=== PATIENT | female | born 1935 | race Asian ===

== ENCOUNTER 2018-07-17 12:20 | Emergency (ER) | payer OTHER ==
[~2018-07-17] VITALS: Ht 147.3 cm; Wt 42.6 kg
[2018-07-17 12:31] VITALS: BP_SYST 139
[2018-07-17] MEDS ORDERED: KETOROLAC TROMETHAMINE 30 MG VIAL IM ONE (13:45)
[2018-07-17 14:31] VITALS: BP_SYST 139
== END 2018-07-17 14:31 | disposition home or self-care (01) ==
LOC: SED 12:20
DX: S00.212A Abrasion of left eyelid and periocular area, initial encounter (principal); R03.0 Elevated blood-pressure reading, without diagnosis of hypertension; Z88.0 Allergy status to penicillin; Z88.2 Allergy status to sulfonamides; Z79.899 Other long term (current) drug therapy; W01.0XXA Fall on same level from slipping, tripping and stumbling without subsequent striking against object, initial encounter; Y93.89 Activity, other specified; Y92.89 Other specified places as the place of occurrence of the external cause; Y99.8 Other external cause status
CPT/HCPCS: 70450; 96372; 99284; J1885

== ENCOUNTER 2018-11-02 09:59 | Inpatient (IN) | payer OTHER ==
[~2018-11-02] VITALS: Ht 147.3 cm; Wt 40.8 kg
[2018-11-02 10:25] VITALS: BP_SYST 166
[2018-11-02 11:18] LABS: ANION GAP 5 (5-15); CHLORIDE 100 mmol/L (98-107); CREATININE 1.44 mg/dL (0.55-1.30); GLUCOSE 115 mg/dL (70-99); POTASSIUM 3.6 mmol/L (3.5-5.1); SODIUM SERUM 137 mmol/L (136-145); UREA NITROGEN, BLOOD 37 mg/dL (8-21)
[2018-11-02 11:21] LABS: HEMATOCRIT 29.2 % (36-48); LYMPHOCYTES % (AUTO) 7.3 % (20.5-51.5); MEAN CORPUSCULAR HEMOGLOBIN 32 pg (27-31); MEAN CORPUSCULAR HGB CONC 34 % (32-36); MEAN CORPUSCULAR VOLUME 94 fL (79.0-98.0); NEUTROPHILS % (AUTO) 81.8 % (40.0-70.0); PLATELET COUNT (AUTO) 342 K/uL (130-430); RED CELL DISTRIBUTION WIDTH 16.3 % (9.0-15.0); WHITE BLOOD COUNT (AUTO) 8.2 K/uL (4.8-10.8)
[2018-11-02 11:22] LABS: ALANINE AMINOTRANSFERASE 80 U/L (12-78); ALBUMIN 2.4 g/dL (3.4-4.8); ASPARTATE AMINOTRANSFERASE 76 U/L (10-37); BASOPHILS % (AUTO) 0.3 % (0.0-2.0); EOSINOPHILS # (AUTO) 0.2 K/uL (0.0-0.4); EOSINOPHILS % (AUTO) 2.2 % (0.0-4.0); LYMPHOCYTES # (AUTO) 0.6 K/uL (1.0-5.5); MONOCYTES # (AUTO) 0.7 K/uL (0.0-1.0); MONOCYTES % (AUTO) 8.4 % (1.7-9.3); NEUTROPHILS # (AUTO) 6.7 K/uL (1.8-7.7); TOTAL BILIRUBIN 0.3 mg/dL (0.0-1.0)
[2018-11-02 11:30] LABS: CALCIUM 14.4 mg/dL (8.4-11.0)
[2018-11-02 12:20] LABS: INR 0.8 (0.8-1.2); PROTHROMBIN TIME < 8.9 SECS (9.5-12.5)
[2018-11-02 12:32] LABS: BILIRUBIN,URINE NEGATIVE (NEGATIVE); BLOOD, URINE NEGATIVE (NEGATIVE); CLARITY/URINE CLEAR (CLEAR); COLOR,URINE YELLOW (YELLOW); GLUCOSE,URINE NEGATIVE (NEGATIVE); KETONES,URINE NEGATIVE (NEGATIVE); LEUKOCYTE ESTERASE ,URINE NEGATIVE (NEGATIVE); NITRITE, URINE NEGATIVE (NEGATIVE); PH,URINE 7.5 (5.0-8.0); PROTEIN URINE TRACE (NEGATIVE); UROBILINOGEN,URINE 0.2 (0.2-1.0)
[2018-11-02 12:46] LABS: BARBITURATE, URINE NEGATIVE (NEG <=200); BENZODIAZEPINE, URINE NEGATIVE (NEG <=150); CANNABINOID, URINE NEGATIVE (NEG <=50); COCAINE, URINE NEGATIVE (NEG <=150); METHAMPHETAMINES SCREEN,URINE NEGATIVE (NEG <=500); OPIATE, URINE NEGATIVE (NEG <=100); PHENCYCLIDINE SCREEN,URINE NEGATIVE (NEG <=25); UR TRICYCLIC ANTIDEPRESSANTS NEGATIVE (NEG <=300); URINE AMPHETAMINE NEGATIVE (NEG <=500); URINE METHADONE NEGATIVE (NEG <=200); URINE OXYCODONE SCREEN NEGATIVE (NEG <=100); URINE PROPOXYPHENE SCREEN NEGATIVE (NEG <=300)
[2018-11-02] MEDS ORDERED: LACT1CAP71 PO (13:51)
[2018-11-02] MEDS ORDERED: FEM2.5 PO (13:51)
[2018-11-02] MEDS ORDERED: CALC-823 PO (13:51)
[2018-11-02] MEDS ORDERED: LOSA100T3 PO (13:51)
[2018-11-02] MEDS ORDERED: LEVE500T9 PO (13:51)
[2018-11-02] MEDS ORDERED: BIMA2.5D5 OP (13:51)
[2018-11-02] MEDS ORDERED: POTA10TA9 PO (14:00)
[2018-11-02] MEDS ORDERED: HYDROcodone/ACETAMIN 5-325 MG TAB (NORCO/ VICODIN) PO ONE (14:00)
[2018-11-02 15:25] VITALS: BP_SYST 142
[2018-11-02] MEDS: POTASSIUM CHLORIDE 10 MEQ in NACL 0.9% 1,000 ML IV SCH (16:15)
[2018-11-02 16:35] VITALS: BP_SYST 139
[2018-11-02] MEDS ORDERED: ACETAMINOPHEN 325 MG TABLET PO PRN (17:15)
[2018-11-02] MEDS ORDERED: ZOLPIDEM TARTRATE 5 MG TABLET PO PRN (17:15)
[2018-11-02] MEDS ORDERED: BALSAM PERU/CASTOR OIL 60 GM OINT...G. TP ONE (18:00)
[2018-11-02] MEDS ORDERED: ASPIRIN 81 MG TABLET(ECOTRIN) PO ONE (19:00)
[2018-11-02] MEDS ORDERED: METOPROLOL TARTRATE 25 MG TABLET PO ONE (19:00)
[2018-11-02] MEDS ORDERED: HYDROcodone/ACETAMIN 5-325 MG TAB (NORCO/ VICODIN) PO PRN (19:00)
[2018-11-02] MEDS ORDERED: PAMIDRONATE DISODIUM 60 MG in NACL 0.9% 1,000 ML IV ONE (19:30)
[2018-11-02 20:00] VITALS: BP_SYST 139
[2018-11-02] MEDS: LATANOPROST 2.5 ML DROPS (XALATAN) OP SCH (20:35)
[2018-11-02] MEDS: levETIRAcetam 500 MG TABLET PO SCH (20:35)
[2018-11-02 22:26] LABS: ANION GAP 5 (5-15); CHLORIDE 98 mmol/L (98-107); CREATININE 1.49 mg/dL (0.55-1.30); GLUCOSE 110 mg/dL (70-99); POTASSIUM 3.2 mmol/L (3.5-5.1); SODIUM SERUM 137 mmol/L (136-145); UREA NITROGEN, BLOOD 40 mg/dL (8-21)
[2018-11-02 23:00] LABS: CALCIUM 14.7 mg/dL (8.4-11.0)
[2018-11-03 00:44] VITALS: BP_SYST 154
[2018-11-03] MEDS: POTASSIUM CHLORIDE 10 MEQ in NACL 0.9% 1,000 ML IV SCH ×3 (01:15→20:58)
[2018-11-03 05:00] VITALS: BP_SYST 148
[2018-11-03 07:13] LABS: ALANINE AMINOTRANSFERASE 62 U/L (12-78); ALBUMIN 2.3 g/dL (3.4-4.8); ANION GAP 5 (5-15); ASPARTATE AMINOTRANSFERASE 69 U/L (10-37); CHLORIDE 101 mmol/L (98-107); CREATININE 1.28 mg/dL (0.55-1.30); GLUCOSE 95 mg/dL (70-99); SODIUM SERUM 136 mmol/L (136-145); TOTAL BILIRUBIN 0.3 mg/dL (0.0-1.0); UREA NITROGEN, BLOOD 37 mg/dL (8-21)
[2018-11-03 07:30] LABS: CALCIUM 13.3 mg/dL (8.4-11.0)
[2018-11-03 08:10] VITALS: BP_SYST 139
[2018-11-03 08:18] LABS: WHITE BLOOD COUNT (AUTO) 9.3 K/uL (4.8-10.8)
[2018-11-03 08:19] LABS: HEMATOCRIT 27.5 % (36-48); HEMOGLOBIN 9.5 g/dL (12.0-16.0); MEAN CORPUSCULAR HEMOGLOBIN 32 pg (27-31); MEAN CORPUSCULAR HGB CONC 34 % (32-36); MEAN CORPUSCULAR VOLUME 94 fL (79.0-98.0); PLATELET COUNT (AUTO) 329 K/uL (130-430); RED BLOOD CELL COUNT(AUTO) 2.94 MIL/uL (4.2-6.2); RED CELL DISTRIBUTION WIDTH 16.5 % (9.0-15.0)
[2018-11-03] MEDS ORDERED: LOSARTAN POTASSIUM 50 MG TABLET (COZAAR) PO SCH (09:00)
[2018-11-03] MEDS: ASPIRIN 81 MG TABLET(ECOTRIN) PO SCH (09:09)
[2018-11-03] MEDS: levETIRAcetam 500 MG TABLET PO SCH (09:09)
[2018-11-03] MEDS: FAMOTIDINE 20 MG TABLET PO SCH (09:09)
[2018-11-03] MEDS: METOPROLOL TARTRATE 25 MG TABLET PO SCH ×2 (09:10→20:57)
[2018-11-03] MEDS: BALSAM PERU/CASTOR OIL 60 GM OINT...G. TP SCH (09:11)
[2018-11-03] MEDS: LOSARTAN POTASSIUM 50 MG TABLET (COZAAR) PO SCH (09:11)
[2018-11-03 09:43] LABS: BASOPHILS % (AUTO) 0.3 % (0.0-2.0); EOSINOPHILS % (AUTO) 2.5 % (0.0-4.0); LYMPHOCYTES # (AUTO) 0.8 K/uL (1.0-5.5); MONOCYTES # (AUTO) 0.8 K/uL (0.0-1.0); MONOCYTES % (AUTO) 8.9 % (1.7-9.3); NEUTROPHILS # (AUTO) 7.4 K/uL (1.8-7.7); NEUTROPHILS % (AUTO) 79.3 % (40.0-70.0)
[2018-11-03 09:44] LABS: EOSINOPHILS # (AUTO) 0.2 K/uL (0.0-0.4)
[2018-11-03 11:38] VITALS: BP_SYST 143
[2018-11-03] MEDS ORDERED: POTASSIUM CHLORIDE 40 MEQ, LIDOCAINE JECT 2% PF 100 MG 50 MG in NS 250 ML IV ONE (13:30)
[2018-11-03] MEDS ORDERED: LORazepam 2 MG/ML VIAL IVP ONE (13:30)
[2018-11-03] MEDS ORDERED: levETIRAcetam 1,000 MG in NS 100 ML IV ONE (14:00)
[2018-11-03] MEDS ORDERED: LORazepam 2 MG/ML VIAL IVP PRN (14:15)
[2018-11-03 16:10] VITALS: BP_SYST 127
[2018-11-03 20:00] VITALS: BP_SYST 143
[2018-11-03] MEDS: LATANOPROST 2.5 ML DROPS (XALATAN) OP SCH (20:56)
[2018-11-03] MEDS: levETIRAcetam 1,000 MG in NS 100 ML IV SCH (20:56)
[2018-11-03] MEDS ORDERED: levETIRAcetam 500 MG TABLET PO SCH (21:00)
[2018-11-04] VITALS (7 sets, daily range): BP systolic 131–185
[2018-11-04] MEDS: POTASSIUM CHLORIDE 10 MEQ in NACL 0.9% 1,000 ML IV SCH (05:49)
[2018-11-04 07:41] LABS: ANION GAP 12 (5-15); CHLORIDE 106 mmol/L (98-107); CREATININE 1.52 mg/dL (0.55-1.30); GLUCOSE 70 mg/dL (70-99); POTASSIUM 3.2 mmol/L (3.5-5.1); SODIUM SERUM 143 mmol/L (136-145); UREA NITROGEN, BLOOD 39 mg/dL (8-21)
[2018-11-04 07:46] LABS: CALCIUM 12.6 mg/dL (8.4-11.0)
[2018-11-04] MEDS ORDERED: ENALAPRILAT DIHYDRATE 1.25 MG/ML VIAL IVP PRN ×3 (08:15→15:45)
[2018-11-04] MEDS: LOSARTAN POTASSIUM 50 MG TABLET (COZAAR) PO SCH ×2 (09:00→09:29)
[2018-11-04] MEDS: ASPIRIN 81 MG TABLET(ECOTRIN) PO SCH (09:00)
[2018-11-04] MEDS: METOPROLOL TARTRATE 25 MG TABLET PO SCH ×3 (09:00→21:24)
[2018-11-04] MEDS: FAMOTIDINE 20 MG TABLET PO SCH (09:00)
[2018-11-04] MEDS: levETIRAcetam 1,000 MG in NS 100 ML IV SCH ×2 (09:14→21:22)
[2018-11-04] MEDS: BALSAM PERU/CASTOR OIL 60 GM OINT...G. TP SCH (09:15)
[2018-11-04] MEDS: 0.45% NACL 1,000 ML IV SCH ×2 (12:00→21:24)
[2018-11-04] MEDS ORDERED: POTASSIUM CHLORIDE 40 MEQ, LIDOCAINE JECT 2% PF 100 MG 50 MG in NS 250 ML IV ONE (12:30)
[2018-11-04] MEDS: DOCUSATE SODIUM 250 MG CAPSULE PO SCH (21:23)
[2018-11-04] MEDS: LATANOPROST 2.5 ML DROPS (XALATAN) OP SCH (21:23)
[2018-11-05 02:02] VITALS: BP_SYST 158
[2018-11-05 06:51] LABS: ANION GAP 7 (5-15); CALCIUM 11.2 mg/dL (8.4-11.0); CHLORIDE 103 mmol/L (98-107); CREATININE 1.28 mg/dL (0.55-1.30); GLUCOSE 106 mg/dL (70-99); SODIUM SERUM 136 mmol/L (136-145); UREA NITROGEN, BLOOD 35 mg/dL (8-21)
[2018-11-05 07:15] LABS: POTASSIUM 2.8 mmol/L (3.5-5.1)
[2018-11-05 08:00] VITALS: BP_SYST 151
[2018-11-05] MEDS: DOCUSATE SODIUM 250 MG CAPSULE PO SCH ×2 (08:16→20:34)
[2018-11-05] MEDS: LOSARTAN POTASSIUM 50 MG TABLET (COZAAR) PO SCH (08:17)
[2018-11-05] MEDS: METOPROLOL TARTRATE 25 MG TABLET PO SCH ×2 (08:18→20:35)
[2018-11-05] MEDS: FAMOTIDINE 20 MG TABLET PO SCH (08:18)
[2018-11-05] MEDS: ASPIRIN 81 MG TABLET(ECOTRIN) PO SCH (08:18)
[2018-11-05] MEDS: BALSAM PERU/CASTOR OIL 60 GM OINT...G. TP SCH (08:26)
[2018-11-05] MEDS: 0.45% NACL 1,000 ML IV SCH ×3 (08:27→21:56)
[2018-11-05] MEDS: levETIRAcetam 1,000 MG in NS 100 ML IV SCH ×2 (08:31→20:34)
[2018-11-05] MEDS ORDERED: POTASSIUM CHLORIDE 40 MEQ, LIDOCAINE JECT 2% PF 100 MG 50 MG in NS 250 ML IV ONE (09:00)
[2018-11-05 11:33] VITALS: BP_SYST 151
[2018-11-05 15:22] VITALS: BP_SYST 155
[2018-11-05 15:28] LABS: ANION GAP 8 (5-15); CALCIUM 11.4 mg/dL (8.4-11.0); CHLORIDE 104 mmol/L (98-107); CREATININE 1.41 mg/dL (0.55-1.30); GLUCOSE 128 mg/dL (70-99); POTASSIUM 3.7 mmol/L (3.5-5.1); SODIUM SERUM 135 mmol/L (136-145); UREA NITROGEN, BLOOD 41 mg/dL (8-21)
[2018-11-05 20:00] VITALS: BP_SYST 145
[2018-11-05] MEDS: LATANOPROST 2.5 ML DROPS (XALATAN) OP SCH (20:35)
[2018-11-06 00:38] VITALS: BP_SYST 143
[2018-11-06 07:31] LABS: ANION GAP 11 (5-15); CALCIUM 11.1 mg/dL (8.4-11.0); CHLORIDE 103 mmol/L (98-107); CREATININE 1.69 mg/dL (0.55-1.30); GLUCOSE 111 mg/dL (70-99); SODIUM SERUM 138 mmol/L (136-145); UREA NITROGEN, BLOOD 46 mg/dL (8-21)
[2018-11-06] MEDS: 0.45% NACL 1,000 ML IV SCH ×3 (08:53→21:55)
[2018-11-06 08:58] VITALS: BP_SYST 131
[2018-11-06] MEDS: BALSAM PERU/CASTOR OIL 60 GM OINT...G. TP SCH ×2 (09:00→13:55)
[2018-11-06] MEDS: levETIRAcetam 1,000 MG in NS 100 ML IV SCH ×2 (09:12→21:59)
[2018-11-06] MEDS: DOCUSATE SODIUM 250 MG CAPSULE PO SCH ×2 (09:14→22:00)
[2018-11-06] MEDS: FAMOTIDINE 20 MG TABLET PO SCH (09:14)
[2018-11-06] MEDS: METOPROLOL TARTRATE 25 MG TABLET PO SCH ×2 (09:14→22:02)
[2018-11-06] MEDS: ASPIRIN 81 MG TABLET(ECOTRIN) PO SCH (09:14)
[2018-11-06] MEDS: LOSARTAN POTASSIUM 50 MG TABLET (COZAAR) PO SCH (09:15)
[2018-11-06] MEDS ORDERED: COMMUNICATION ORDER XX ONE (10:30)
[2018-11-06] MEDS ORDERED: POTASSIUM CHLORIDE 40 MEQ, LIDOCAINE JECT 2% PF 100 MG 50 MG in NS 250 ML IV ONE (10:45)
[2018-11-06 12:39] VITALS: BP_SYST 136
[2018-11-06 15:51] VITALS: BP_SYST 135
[2018-11-06] MEDS ORDERED: POTASSIUM CHLORIDE 20 MEQ TAB.PRT.SR PO ONE (16:45)
[2018-11-06] MEDS: LATANOPROST 2.5 ML DROPS (XALATAN) OP SCH (21:59)
[2018-11-06 22:03] VITALS: BP_SYST 164
[2018-11-06 23:37] VITALS: BP_SYST 168
[2018-11-07] MEDS: 0.45% NACL 1,000 ML IV SCH (05:17)
[2018-11-07 06:21] LABS: ANION GAP 9 (5-15); CALCIUM 11.8 mg/dL (8.4-11.0); CHLORIDE 102 mmol/L (98-107); CREATININE 1.39 mg/dL (0.55-1.30); GLUCOSE 106 mg/dL (70-99); POTASSIUM 3.7 mmol/L (3.5-5.1); SODIUM SERUM 138 mmol/L (136-145); UREA NITROGEN, BLOOD 44 mg/dL (8-21)
[2018-11-07 06:31] LABS: ALANINE AMINOTRANSFERASE 47 U/L (12-78); ALBUMIN 2.4 g/dL (3.4-4.8); ASPARTATE AMINOTRANSFERASE 60 U/L (10-37); TOTAL BILIRUBIN 0.2 mg/dL (0.0-1.0)
[2018-11-07 07:39] LABS: HEMOGLOBIN 9.4 g/dL (12.0-16.0); MEAN CORPUSCULAR HEMOGLOBIN 32 pg (27-31); MEAN CORPUSCULAR HGB CONC 34 % (32-36); MEAN CORPUSCULAR VOLUME 95 fL (79.0-98.0); PLATELET COUNT (AUTO) 371 K/uL (130-430); RED BLOOD CELL COUNT(AUTO) 2.96 MIL/uL (4.2-6.2); RED CELL DISTRIBUTION WIDTH 16.1 % (9.0-15.0); WHITE BLOOD COUNT (AUTO) 13.6 K/uL (4.8-10.8)
[2018-11-07 08:00] VITALS: BP_SYST 160
[2018-11-07] MEDS: DOCUSATE SODIUM 250 MG CAPSULE PO SCH (09:00)
[2018-11-07] MEDS: FAMOTIDINE 20 MG TABLET PO SCH (09:29)
[2018-11-07] MEDS: levETIRAcetam 1,000 MG in NS 100 ML IV SCH (09:29)
[2018-11-07] MEDS: ASPIRIN 81 MG TABLET(ECOTRIN) PO SCH (09:29)
[2018-11-07] MEDS: LOSARTAN POTASSIUM 50 MG TABLET (COZAAR) PO SCH (09:30)
[2018-11-07] MEDS: METOPROLOL TARTRATE 25 MG TABLET PO SCH (09:30)
[2018-11-07] MEDS: BALSAM PERU/CASTOR OIL 60 GM OINT...G. TP SCH (09:31)
[2018-11-07 10:08] LABS: BAND % (MANUAL) 5 % (0-6); BASOPHILS % (MANUAL) 0 % (0-2); EOSINOPHILS % (MANUAL) 1 % (0-7); LYMPHOCYTES % (MANUAL) 8 % (20-46); METAMYELOCYTES % 2 % (0-0); MONOCYTES % (MANUAL) 8 % (0-11); MYELOCYTES % 7 % (0-0)
[2018-11-07 11:28] VITALS: BP_SYST 154
[2018-11-07 12:37] VITALS: BP_SYST 158
[2018-11-07 15:16] VITALS: BP_SYST 158
== END 2018-11-07 18:12 | DRG 682 ==
LOC: SED 09:59 → STU 14:41
PROVIDERS: ADMIT Internal Medicine; ATTEND Internal Medicine
DX: N17.0 Acute kidney failure with tubular necrosis (principal); E43 Unspecified severe protein-calorie malnutrition; C79.89 Secondary malignant neoplasm of other specified sites; C79.51 Secondary malignant neoplasm of bone; G81.94 Hemiplegia, unspecified affecting left nondominant side; G93.40 Encephalopathy, unspecified; Z68.1 Body mass index [BMI] 19.9 or less, adult; E83.52 Hypercalcemia; C50.919 Malignant neoplasm of unspecified site of unspecified female breast; G40.909 Epilepsy, unspecified, not intractable, without status epilepticus; E86.0 Dehydration; H40.9 Unspecified glaucoma; R54 Age-related physical debility; I67.1 Cerebral aneurysm, nonruptured; I10 Essential (primary) hypertension; N63.20 Unspecified lump in the left breast, unspecified quadrant; Z85.3 Personal history of malignant neoplasm of breast; Z90.12 Acquired absence of left breast and nipple; Z91.81 History of falling; Z92.3 Personal history of irradiation; Z98.2 Presence of cerebrospinal fluid drainage device; Z79.811 Long term (current) use of aromatase inhibitors; Z88.0 Allergy status to penicillin; Z88.2 Allergy status to sulfonamides; Z88.8 Allergy status to other drugs, medicaments and biological substances; Z79.899 Other long term (current) drug therapy
CPT/HCPCS: 36415; 70450-TC; 71045; 80048; 80053; 80307; 81003; 83605; 83735-TC; 83880; 84484; 85007; 85025; 85027; 85610-TC; 85730-TC; 87040-TC; 87081; 87086; 92610-GN; 93005; 95816; 99285; G0378; J1953; J2060; J2430; J3480; J7030; J7050